=== PATIENT | male | born 1970 | race Caucasian/White ===

== ENCOUNTER 2020-05-28 20:11 | Emergency (ER) | payer MEDICAID, SELFPAY ==
[~2020-05-28] VITALS: Ht 162.6 cm; Wt 111.1 kg
[2020-05-28 20:13] VITALS: Ht 162.6 cm; Wt 111.1 kg
[2020-05-28 21:50] VITALS: BP 159/100
== END 2020-05-28 21:50 | disposition home or self-care (01) ==
LOC: ED 20:11
DX: J02.9 Acute pharyngitis, unspecified (principal); R05 Cough; R51.9 Headache, unspecified; E66.9 Obesity, unspecified
CPT/HCPCS: U0003

== ENCOUNTER 2020-07-23 22:12 | Emergency (ER) | payer MEDICAID ==
[~2020-07-23] VITALS: Ht 162.6 cm; Wt 108.9 kg
[2020-07-23 22:24] VITALS: Ht 162.6 cm; Wt 108.9 kg
[2020-07-23 23:24] VITALS: BP 157/104
== END 2020-07-23 23:24 | disposition home or self-care (01) ==
LOC: ED 22:12
DX: K08.89 Other specified disorders of teeth and supporting structures (principal)